=== PATIENT | male | born 1965 | race Hispanic/Latino ===

== ENCOUNTER 2017-07-03 17:39 | Emergency (ER) | payer SELFPAY ==
[~2017-07-03] VITALS: Ht 157.5 cm; Wt 45.0 kg
[2017-07-03 19:35] LABS: URINE BILIRUBIN - DIPSTICK NEGATIVE (NEGATIVE); URINE BLOOD DIPSTICK TRACE-INTACT (NEGATIVE); URINE COLOR YELLOW; URINE GLUCOSE - DIPSTICK NEGATIVE (NEGATIVE); URINE KETONE NEGATIVE (NEGATIVE); URINE NITRITE - DIPSTICK NEGATIVE (Negative); URINE PROTEIN - DIPSTICK NEGATIVE (NEG-TRACE); URINE SPECIFIC GRAVITY <=1.005; URINE UROBILINOGEN - DIPSTICK 0.2 E.U./dL (0.2)
[2017-07-03 19:38] LABS: URINE CLARITY CLEAR; URINE LEUK ESTERASE SMALL (NEGATIVE)
[2017-07-03] MEDS ORDERED: METRONIDAZOL500 MG PO (19:45)
[2017-07-03] MEDS ORDERED: BACTRIM DS1 TAB PO (19:45)
[2017-07-03 19:46] LABS: URINE SQUAMOUS EPITHELIAL CELL FEW EPI/hpf (0-FEW); URINE WBC 20-50 WBC/hpf (0-5)
[2017-07-03 19:47] VITALS: BP 135/85
[2017-07-03 19:47] LABS: URINE BACTERIA RARE hpf
== END 2017-07-03 19:50 | disposition home or self-care (01) | DRG 690 ==
LOC: EDBD 17:39 → ED 17:39
PROVIDERS: Emergency Medicine
DX: N39.0 Urinary tract infection, site not specified (principal); N48.1 Balanitis; N48.89 Other specified disorders of penis